=== PATIENT | male | born 1980 | race Caucasian/White ===

== ENCOUNTER 2020-04-07 09:34 | Emergency (ER) | payer OTHER ==
[~2020-04-07] VITALS: Ht 175.3 cm; Wt 117.9 kg
--- NOTE | 2020-04-07 10:00 | NUR ---
DR JENNINGS AT BEDSIDE FOR EVAL.
[2020-04-07] MEDS ORDERED: IBUPROFEN 600 MG TABLET PO ONE (10:15)
[2020-04-07] MEDS: IBUPROFEN 600 MG TABLET PO ONE (10:16)
--- NOTE | 2020-04-07 10:49 | NUR ---
SEEN AND EVALUATED. L ELBOW X RAYED. MEDICATED. PT IS MEDICALLY CLEARED. IN CUSTODY. D/C TO PD IN STABLE CONDITION.
[2020-04-07 10:51] VITALS: BP 132/99
== END 2020-04-07 10:52 ==
LOC: ER 09:37
DX: S50.02XA Contusion of left elbow, initial encounter (principal); M84.422A Pathological fracture, left humerus, initial encounter for fracture; G89.18 Other acute postprocedural pain; I10 Essential (primary) hypertension; M54.30 Sciatica, unspecified side; Z98.890 Other specified postprocedural states; X58.XXXA Exposure to other specified factors, initial encounter; Y93.89 Activity, other specified; Y92.89 Other specified places as the place of occurrence of the external cause; Y99.8 Other external cause status
CPT/HCPCS: 73070-TC